=== PATIENT | female | born 1990 | race Caucasian/White ===

== ENCOUNTER 2020-01-03 19:21 | Emergency (ER) | payer MEDICAID ==
[2020-01-03] MEDS ORDERED: Sodium Chloride 0.9% 10 ML Syringe FLUSH PRN (20:19)
--- NOTE | 2020-01-03 20:26 | EDM.PDOC ---
ED HPI GENERAL MEDICAL PROBLEM - General Chief Complaint: General Stated Complaint: MEDICAL Time Seen by Provider: 01/03/20 20:20 Source of Information: Reports: Patient History Limitations: Reports: No Limitations - History of Present Illness INITIAL COMMENTS - FREE TEXT/NARRATIVE: pt has a known conversion reaction. Recently She has been having episodes where she will fall to the ground and start shaking ./ She was to be seen in [place] soon to see if she is having seizures. These started when she was 15 years old and she actually went through a time where she could not walk for about 3 monthes. She had a episode tonight where she was lying onthe ground and she felt numb and tingly all over. She did seem distressed with her breathing. Onset: Today, Sudden Duration: Hour(s): Location: Reports: Head, Chest, Generalized Associated Symptoms: Reports: Shortness of Breath, Syncope, Weakness Generalized Pain Score (Numeric/FACES): 8 - Related Data Allergies Allergy/AdvReac Type Severity Reaction Status Date / Time No Known Allergies Allergy Verified 01/03/20 19:39 Home Meds: Home Meds Amphetamine/Dextroamphetamine [Adderall XR] 30 mg PO DAILY 01/03/20 [History] Gabapentin [Neurontin] 600 mg PO TID 01/03/20 [History] QUEtiapine [SEROquel] 25 mg PO BEDTIME 01/03/20 [History] Venlafaxine [Effexor XR] 150 mg PO BEDTIME 01/03/20 [History] Past Medical History Cardiovascular History: Reports: Heart Murmur 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 Psychiatric History: Reports: Anxiety, Depression, Panic Attack, Suicide Attempt , Suicidal Ideation, Other (See Below) Other Psychiatric History: conversion disorder - Past Surgical History Female Surgical History: Reports: Section Social & Family History - Tobacco Use Smoking Status *Q: Light Tobacco Smoker Years of Tobacco use: 13 Packs/Tins Daily: 1 - Caffeine Use Caffeine Use: Reports: Coffee, Energy Drinks, Soda - Recreational Drug Use Recreational Drug Use: No ED ROS GENERAL - Review of Systems Review Of Systems: See Below Constitutional: Reports: No Symptoms HEENT: Reports: No Symptoms Respiratory: Reports: Shortness of Breath Cardiovascular: Reports: No Symptoms Endocrine: Reports: No Symptoms GI/Abdominal: Reports: No Symptoms : Reports: No Symptoms Musculoskeletal: Reports: No Symptoms Skin: Reports: No Symptoms Neurological: Reports: Other (pt is having difficulty moving her legs and standing. She is having spasm in her hands. She is tingling all over. ) ED EXAM, GENERAL - Physical Exam Exam: See Below Free Text/Narrative:: pt arrived stating that she was not able to stand up from the tolet. She was hyperventilating but the pt did not realize it. She was tingly all over. She felt sob. She has been having numerous episodes where she is actually lying on the floor. and she can not get up. Pt is thinking she may be having seizures. Exam Limited By: No Limitations General Appearance: Alert, Anxious, Moderate Distress, Other (pt is rigid and her laegs are nt working right. pupils are equal and reactive. ) Ears: Normal TMs Nose: Normal Inspection Throat/Mouth: Normal Inspection Head: Atraumatic Neck: Normal Inspection Respiratory/Chest: Decreased Breath Sounds, Other (pt is hyperventilating. ) Cardiovascular: Regular Rate, Rhythm, Tachycardia GI/Abdominal: Soft, Non-Tender (Female) Exam: Deferred Rectal (Female) Exam: Deferred Back Exam: Normal Inspection Extremities: Other (hands are in spasm her legs still are not working right. ) Neurological: Alert, Oriented, Normal Cognition, Other ( very anxiou) Psychiatric: Anxious Course - Vital Signs Last Recorded V/S: Last Vital Signs Temp 36.8 C 01/03/20 19:38 Pulse 86 01/03/20 22:00 Resp 16 01/03/20 22:00 BP 153/65 H 01/03/20 22:00 Pulse Ox 100 01/03/20 22:00 Orthostatic Blood Pressure [ 156/121 Standing] Orthostatic Blood Pressure [ 142/76 Sitting] Orthostatic Blood Pressure [ 112/88 Supine] - Orders/Labs/Meds Orders: Active Orders 24 hr Category Date Time Status Orthostatic Vital Signs [RC] ASDIRECTED Care 01/03/20 20:11 Active Chest 1V Frontal [CR] Stat Exams 01/03/20 21:28 Taken Sodium Chloride 0.9% [Normal Saline] 1,000 ml Med 01/03/20 21:30 Active IV ASDIRECTED Sodium Chloride 0.9% [Saline Flush] Med 01/03/20 20:19 Active 10 ml FLUSH ASDIRECTED PRN Saline Lock Insert [OM.PC] Routine Oth 01/03/20 20:19 Ordered Medication Orders Sodium Chloride (Normal Saline) 1,000 mls @ 999 mls/hr IV ASDIRECTED ALEX Last Admin: 01/03/20 21:50 Dose: 999 mls/hr Sodium Chloride (Saline Flush) 10 ml FLUSH ASDIRECTED PRN PRN Reason: Keep Vein Open Last Admin: 01/03/20 21:22 Dose: 10 ml Labs: Laboratory Tests 01/03/20 01/03/20 01/03/20 Range/Units 20:09 20:09 20:18 WBC 11.3 H (4.5-11.0) K/uL RBC 4.58 (3.30-5.50) M/uL Hgb 13.0 (12.0-15.0) g/dL Hct 40.2 (36.0-48.0) % MCV 88 (80-98) fL MCH 28 (27-31) pg MCHC 32 (32-36) % Plt Count 393 (150-400) K/uL Neut % (Auto) 66 (36-66) % Lymph % (Auto) 28 (24-44) % [place] % (Auto) 6 (2-6) % Eos % (Auto) 0 L (2-4) % Baso % (Auto) 0 (0-1) % Puncture Site Lt radial ABG pH 7.619 H* (7.350-7.450) ABG pCO2 12.7 L* (35.0-42.0) mmHg ABG pO2 136.0 H (75.0-100.0) mmHg ABG HCO3 13.1 L (22.0-26.0) mmol/L ABG Total CO2 13.1 L (21.0-25.0) mmol/L ABG O2 Saturation 99.7 H (95.0-98.0) % ABG Base Excess -9.3 mm/L ABG Hemoglobin 2.4 L (12.0-16.0) g/dL ABG Oxyhemoglobin % ABG Carboxyhemoglobin (0.0-1.6) % ABG Methemoglobin % Eleazar Test Passed O2 Delivery Device Room air Sodium 142 (140-148) mmol/L Potassium 3.6 (3.6-5.2) mmol/L Chloride 107 (100-108) mmol/L Carbon Dioxide 19 L (21-32) mmol/L Anion Gap 19.6 H (5.0-14.0) mmol/L BUN 9 (7-18) mg/dL Creatinine 0.8 (0.6-1.0) mg/dL Est Cr Clr Drug Dosing 92.53 mL/min Estimated GFR (MDRD) > 60 (>60) Glucose 108 H (74-106) mg/dL Calcium 9.1 (8.5-10.1) mg/dL Total Bilirubin 0.2 (0.2-1.0) mg/dL AST 20 (15-37) U/L ALT 39 (12-78) U/L Alkaline Phosphatase 71 (46-116) U/L Total Protein 7.4 (6.4-8.2) g/dL Albumin 4.0 (3.4-5.0) g/dL Globulin 3.4 (2.3-3.5) g/dL Albumin/Globulin Ratio 1.2 (1.2-2.2) Urine Color (YELLOW) Urine Appearance (CLEAR) Urine pH (5.0-8.0) Ur Specific [place] (1.008-1.030) Urine Protein (NEGATIVE) mg/dL Urine Glucose (UA) (NEGATIVE) mg/dL Urine Ketones (NEGATIVE) mg/dL Urine Occult Blood (NEGATIVE) Urine Nitrite (NEGATIVE) Urine Bilirubin (NEGATIVE) Urine Urobilinogen (0.2-1.0) EU/dL Ur Leukocyte Esterase (NEGATIVE) Urine RBC (0-5) Urine WBC (0-5) Ur Epithelial Cells Amorphous Sediment Urine Bacteria Urine Mucus 01/03/20 Range/Units 21:19 WBC (4.5-11.0) K/uL RBC (3.30-5.50) M/uL Hgb (12.0-15.0) g/dL Hct (36.0-48.0) % MCV (80-98) fL MCH (27-31) pg MCHC (32-36) % Plt Count (150-400) K/uL Neut % (Auto) (36-66) % Lymph % (Auto) (24-44) % [place] % (Auto) (2-6) % Eos % (Auto) (2-4) % Baso % (Auto) (0-1) % Puncture Site ABG pH (7.350-7.450) ABG pCO2 (35.0-42.0) mmHg ABG pO2 (75.0-100.0) mmHg ABG HCO3 (22.0-26.0) mmol/L ABG Total CO2 (21.0-25.0) mmol/L ABG O2 Saturation (95.0-98.0) % ABG Base Excess mm/L ABG Hemoglobin (12.0-16.0) g/dL ABG Oxyhemoglobin % ABG Carboxyhemoglobin (0.0-1.6) % ABG Methemoglobin % Eleazar Test O2 Delivery Device Sodium (140-148) mmol/L Potassium (3.6-5.2) mmol/L Chloride (100-108) mmol/L Carbon Dioxide (21-32) mmol/L Anion Gap (5.0-14.0) mmol/L BUN (7-18) mg/dL Creatinine (0.6-1.0) mg/dL Est Cr Clr Drug Dosing mL/min Estimated GFR (MDRD) (>60) Glucose (74-106) mg/dL Calcium (8.5-10.1) mg/dL Total Bilirubin (0.2-1.0) mg/dL AST (15-37) U/L ALT (12-78) U/L Alkaline Phosphatase (46-116) U/L Total Protein (6.4-8.2) g/dL Albumin (3.4-5.0) g/dL Globulin (2.3-3.5) g/dL Albumin/Globulin Ratio (1.2-2.2) Urine Color Yellow (YELLOW) Urine Appearance Cloudy A (CLEAR) Urine pH 8.5 H (5.0-8.0) Ur Specific [place] 1.025 (1.008-1.030) Urine Protein 100 H (NEGATIVE) mg/dL Urine Glucose (UA) Negative (NEGATIVE) mg/dL Urine Ketones Trace H (NEGATIVE) mg/dL Urine Occult Blood Large H (NEGATIVE) Urine Nitrite Negative (NEGATIVE) Urine Bilirubin Negative (NEGATIVE) Urine Urobilinogen 0.2 (0.2-1.0) EU/dL Ur Leukocyte Esterase Negative (NEGATIVE) Urine RBC 10-20 H (0-5) Urine WBC 0-5 (0-5) Ur Epithelial Cells Many Amorphous Sediment Not seen Urine Bacteria Moderate Urine Mucus Many Meds: Medications Generic Name Dose Route Start Last Admin Trade Name Freq PRN Reason Stop Dose Admin Sodium Chloride 1,000 mls @ 999 mls/hr 01/03/20 21:30 01/03/20 21:50 Normal Saline IV 999 mls/hr ASDIRECTED ALEX Administration Sodium Chloride 10 ml 01/03/20 20:19 01/03/20 21:22 Saline Flush FLUSH 10 ml ASDIRECTED PRN Administration Keep Vein Open Discontinued Medications Generic Name Dose Route Start Last Admin Trade Name Freq PRN Reason Stop Dose Admin Acetaminophen 650 mg 01/03/20 22:27 Tylenol PO 01/03/20 22:28 NOW ONE Lorazepam 0.5 mg 01/03/20 20:27 01/03/20 21:21 Ativan IVPUSH 01/03/20 20:28 0.5 mg ONETIME ONE Administration Lorazepam 0.5 mg 01/03/20 21:54 01/03/20 22:13 Ativan IVPUSH 01/03/20 21:55 0.5 mg ONETIME ONE Administration - Re-Assessments/Exams Free Text/Narrative Re-Assessment/Exam: 01/03/20 22:56 cat scan of the head is neg. She had blood gases which show a ph greater than 7.6. Her co2 on the blood gases was 12.6. She clearly had been hyperventillating a t home for a period of time. She was breathing rapidly tonight on arrival. Her other lab work looks normal. Pt states she has a conversion syndrome. 01/03/20 22:58 pt was given a total of ativan 1.5 mg. She is looking better her breathing is better. Departure - Departure Time of Disposition: 23:05 Disposition: Home, Self-Care 01 Condition: Fair Clinical Impression: Respiratory alkalosis, Hyperventilation, Anxiety - Discharge Information Referrals: Arline Caceres MD [Primary Care Provider] - Forms: ED Department Discharge Care Plan Goals: appt with Dr Caceres tomorrow. The pt needs some medication readjustment and psych consult. 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 Pt needs to gain some insight as to what to do when this happens. pt was given vistaril 25 mg to use . when she is feeling upset or getting tense. pt needs to use her medication regularly and not skep doses. . vistaril 25 q8h prn for anxiety or feeling upset. Sepsis Event Note (ED) - Evaluation Sepsis Screening Result: No Definite Risk - Focused Exam Vital Signs: Vital Signs Temp Pulse Resp BP Pulse Ox 01/03/20 22:00 86 16 153/65 H 100 01/03/20 21:32 103 H 22 H 142/82 H 100 01/03/20 20:48 100 22 H 132/66 99 01/03/20 19:38 36.8 C 111 H 16 146/81 H 99 01/03/20 19:33 36.8 C 111 H 16 146/81 H 99 - My Orders Last 24 Hours: My Active Orders 01/03/20 20:11 Orthostatic Vital Signs [RC] ASDIRECTED 01/03/20 20:19 Sodium Chloride 0.9% [Saline Flush] 10 ml FLUSH ASDIRECTED PRN Saline Lock Insert [OM.PC] Routine 01/03/20 21:28 Chest 1V Frontal [CR] Stat 01/03/20 21:30 Sodium Chloride 0.9% [Normal Saline] 1,000 ml IV ASDIRECTED - Assessment/Plan Last 24 Hours: My Active Orders 01/03/20 20:11 Orthostatic Vital Signs [RC] ASDIRECTED 01/03/20 20:19 Sodium Chloride 0.9% [Saline Flush] 10 ml FLUSH ASDIRECTED PRN Saline Lock Insert [OM.PC] Routine 01/03/20 21:28 Chest 1V Frontal [CR] Stat 01/03/20 21:30 Sodium Chloride 0.9% [Normal Saline] 1,000 ml IV ASDIRECTED
[2020-01-03] MEDS ORDERED: LORazepam 2 MG/ML SDV IVPUSH ONE ×2 (20:27→21:54)
--- NOTE | 2020-01-03 21:02 | CRLCT ---
INDICATION: Generalized weakness and numbness TECHNIQUE: CT head without contrast. COMPARISON: None FINDINGS: CSF spaces: Within normal limits for age. Brain parenchyma: The manriquez-white differentiation is normal. No sign of mass, hemorrhage, or midline shift. Skull base and calvarium: The visualized paranasal sinuses and mastoid air cells demonstrate no acute or significant findings. The visualized orbits are grossly unremarkable. No skull fractures. IMPRESSION: Unremarkable noncontrast head CT. Dictated by Lior Aguilar MD @ 01/03/2020 9:00:41 PM Please note that all CT scans at this facility use dose modulation, iterative reconstruction, and/or weight-based dosing when appropriate to reduce radiation dose to as low as reasonably achievable. Dictated by: Lior Aguilar MD @ 01/03/2020 21:00:46 (Electronically Signed)
[2020-01-03] MEDS ORDERED: Sodium Chloride 0.9% 1,000 ML IV SCH (21:30)
[2020-01-03] MEDS ORDERED: Acetaminophen 325 MG Tab PO ONE (22:27)
[2020-01-03] MEDS ORDERED: hydrOXYzine HCl 25 MG Tab ONE (23:32)
--- NOTE | 2020-01-04 08:56 | CR ---
CHEST: Portable 01/03/2020 at 9:40 PM CLINICAL HISTORY:SOB COMPARISON:None FINDINGS: Patient has a moderate to dextro scoliosis of the thoracic spine. The heart size, pulmonary vascularity and hilar structures are normal. No infiltrate effusion or pneumothorax is seen. IMPRESSION: No acute cardiopulmonary process.
[2020-01-04] MEDS ORDERED: hydrOXYzine HCl 25 MG Tab PO SCH (21:00)
== END 2020-01-04 00:15 | disposition home or self-care (01) ==
LOC: JP.ED 19:21
DX: F41.9 Anxiety disorder, unspecified (principal); R06.4 Hyperventilation; E87.3 Alkalosis; J45.909 Unspecified asthma, uncomplicated; F32.9 Major depressive disorder, single episode, unspecified; F17.210 Nicotine dependence, cigarettes, uncomplicated; Z79.899 Other long term (current) drug therapy
CPT/HCPCS: 36415; 36600; 70450; 71045; 80053; 81001; 82803; 85025; 96361; 96374; 96376; 99285; A9270; J2060; J7030

== ENCOUNTER 2020-05-31 10:09 | Emergency (ER) | payer MEDICAID ==
[2020-05-31] MEDS ORDERED: LORazepam 2 MG/ML SDV IVPUSH ONE (11:32)
[2020-05-31] MEDS ORDERED: Albuterol 8 GM Inhaler INH ONE (11:35)
[2020-05-31] MEDS ORDERED: Acetaminophen 325 MG Tab PO ONE (11:38)
--- NOTE | 2020-05-31 11:38 | EDM.PDOC ---
ED HPI GENERAL MEDICAL PROBLEM - General Chief Complaint: Respiratory Problem Stated Complaint: TROUBLE BREATHING Time Seen by Provider: 05/31/20 11:35 Source of Information: Reports: Patient History Limitations: Reports: No Limitations - History of Present Illness INITIAL COMMENTS - FREE TEXT/NARRATIVE: pt arrived very anxious and feeling sob. She left work last nite with sob and her sats according to what they obtaained at the [facility] was in the 85 range. She does have a history of asthma. Onset: Other ( started last nite. ) Duration: Hour(s): Associated Symptoms: Reports: Cough, Shortness of Breath, Other (pt is very anxious. ) Back Pain Score (Numeric/FACES): 9 - Related Data Allergies Allergy/AdvReac Type Severity Reaction Status Date / Time No Known Allergies Allergy Verified 05/31/20 11:00 Home Meds: Home Meds Amphetamine/Dextroamphetamine [Adderall XR] 30 mg PO DAILY 01/03/20 [History] Gabapentin [Neurontin] 600 mg PO TID 01/03/20 [History] QUEtiapine [SEROquel] 25 mg PO BEDTIME 01/03/20 [History] Venlafaxine [Effexor XR] 150 mg PO BEDTIME 01/03/20 [History] Albuterol Sulfate [Albuterol Sulfate Hfa] 2 puff IH Q4H 05/31/20 [History] Propranolol [Inderal] 80 mg PO BEDTIME 05/31/20 [History] SUMAtriptan [Imitrex] 25 mg PO ASDIRECTED 05/31/20 [History] Past Medical History Cardiovascular History: Reports: Heart Murmur 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 Psychiatric History: Reports: Anxiety, Depression, Panic Attack, Suicide Attempt, Suicidal Ideation, Other (See Below) Other Psychiatric History: conversion disorder - Infectious Disease History Infectious Disease History: Reports: Chicken Pox - Past Surgical History Female Surgical History: Reports: Section Social & Family History - Tobacco Use Tobacco Use Status *Q: Current Every Day Tobacco User Years of Tobacco use: 13 Packs/Tins Daily: 1 Used Tobacco, but Quit: No Second Hand Smoke Exposure: Yes - Caffeine Use Caffeine Use: Reports: Coffee, Energy Drinks, Soda, Tea - Recreational Drug Use Recreational Drug Use: No ED ROS GENERAL - Review of Systems Review Of Systems: See Below Constitutional: Reports: Chills, Weakness, Decreased Appetite HEENT: Reports: No Symptoms Respiratory: Reports: Shortness of Breath, Other (pt is hyperventilating. ) Cardiovascular: Reports: No Symptoms Endocrine: Reports: No Symptoms GI/Abdominal: Reports: Nausea, Other ( ) : Reports: No Symptoms Musculoskeletal: Reports: No Symptoms Skin: Reports: No Symptoms ED EXAM, GENERAL - Physical Exam Exam: See Below Free Text/Narrative:: pt arrived hyperventilating and feeling sob. She gives a history of low o2 sats last nite before she left the [facility]. Exam Limited By: No Limitations General Appearance: Alert, Anxious, Moderate Distress Ears: Normal TMs Nose: Normal Inspection Throat/Mouth: Normal Inspection Head: Atraumatic Neck: Normal Inspection Respiratory/Chest: Other (pt was breathing quite rapidly ) Cardiovascular: Regular Rate, Rhythm GI/Abdominal: Soft, Non-Tender (Female) Exam: Deferred Rectal (Female) Exam: Deferred Back Exam: Normal Inspection Extremities: Normal Inspection Neurological: Alert, Oriented, Normal Cognition Psychiatric: Anxious Course - Vital Signs Last Recorded V/S: Last Vital Signs Temp 35.8 C L 05/31/20 13:05 Pulse 85 05/31/20 13:05 Resp 12 05/31/20 13:05 BP 133/79 05/31/20 13:05 Pulse Ox 99 05/31/20 13:05 - Orders/Labs/Meds Orders: Active Orders 24 hr Category Date Time Status RT Post Treatment Assessment [RC] Click to Edit Care 05/31/20 11:35 Active Chest 1V Frontal [CR] Stat Exams 05/31/20 11:34 Taken Sodium Chloride 0.9% [Normal Saline] 1,000 ml Med 05/31/20 11:45 Active IV ASDIRECTED Medication Orders Sodium Chloride (Normal Saline) 1,000 mls @ 999 mls/hr IV ASDIRECTED ALEX Last Admin: 05/31/20 11:57 Dose: 999 mls/hr Documented by: RADHA Labs: Laboratory Tests 05/31/20 05/31/20 05/31/20 Range/Units 10:56 11:09 11:09 WBC 6.7 (4.5-11.0) K/uL RBC 4.22 (3.30-5.50) M/uL Hgb 12.1 (12.0-15.0) g/dL Hct 37.1 (36.0-48.0) % MCV 88 (80-98) fL MCH 29 (27-31) pg MCHC 33 (32-36) % Plt Count 342 (150-400) K/uL Neut % (Auto) 50 (36-66) % Lymph % (Auto) 43 (24-44) % [place] % (Auto) 7 H (2-6) % Eos % (Auto) 0 L (2-4) % Baso % (Auto) 0 (0-1) % D-Dimer, Quantitative (0.0-500.0) ng/mL Sodium 142 (140-148) mmol/L Potassium 3.4 L (3.6-5.2) mmol/L Chloride 107 (100-108) mmol/L Carbon Dioxide 22 (21-32) mmol/L Anion Gap 16.4 H (5.0-14.0) mmol/L BUN 10 (7-18) mg/dL Creatinine 0.8 (0.6-1.0) mg/dL Est Cr Clr Drug Dosing 96.26 mL/min Estimated GFR (MDRD) > 60 (>60) Glucose 91 (74-106) mg/dL Calcium 8.7 (8.5-10.1) mg/dL Total Bilirubin 0.2 (0.2-1.0) mg/dL AST 20 (15-37) U/L ALT 24 (12-78) U/L Alkaline Phosphatase 69 (46-116) U/L C-Reactive Protein (0.0-0.3) mg/dL Total Protein 6.8 (6.4-8.2) g/dL Albumin 3.6 (3.4-5.0) g/dL Globulin 3.2 (2.3-3.5) g/dL Albumin/Globulin Ratio 1.1 L (1.2-2.2) Urine Color (YELLOW) Urine Appearance (CLEAR) Urine pH (5.0-8.0) Ur Specific [place] (1.008-1.030) Urine Protein (NEGATIVE) mg/dL Urine Glucose (UA) (NEGATIVE) mg/dL Urine Ketones (NEGATIVE) mg/dL Urine Occult Blood (NEGATIVE) Urine Nitrite (NEGATIVE) Urine Bilirubin (NEGATIVE) Urine Urobilinogen (0.2-1.0) EU/dL Ur Leukocyte Esterase (NEGATIVE) Urine RBC (0-5) Urine WBC (0-5) Ur Epithelial Cells Amorphous Sediment Urine Bacteria Urine Mucus SARS CoV-2 RNA Rapid DANIAL Positive H 05/31/20 05/31/20 05/31/20 Range/Units 11:26 11:26 12:11 WBC (4.5-11.0) K/uL RBC (3.30-5.50) M/uL Hgb (12.0-15.0) g/dL Hct (36.0-48.0) % MCV (80-98) fL MCH (27-31) pg MCHC (32-36) % Plt Count (150-400) K/uL Neut % (Auto) (36-66) % Lymph % (Auto) (24-44) % [place] % (Auto) (2-6) % Eos % (Auto) (2-4) % Baso % (Auto) (0-1) % D-Dimer, Quantitative 251.67 (0.0-500.0) ng/mL Sodium (140-148) mmol/L Potassium (3.6-5.2) mmol/L Chloride (100-108) mmol/L Carbon Dioxide (21-32) mmol/L Anion Gap (5.0-14.0) mmol/L BUN (7-18) mg/dL Creatinine (0.6-1.0) mg/dL Est Cr Clr Drug Dosing mL/min Estimated GFR (MDRD) (>60) Glucose (74-106) mg/dL Calcium (8.5-10.1) mg/dL Total Bilirubin (0.2-1.0) mg/dL AST (15-37) U/L ALT (12-78) U/L Alkaline Phosphatase (46-116) U/L C-Reactive Protein < 0.05 (0.0-0.3) mg/dL Total Protein (6.4-8.2) g/dL Albumin (3.4-5.0) g/dL Globulin (2.3-3.5) g/dL Albumin/Globulin Ratio (1.2-2.2) Urine Color Yellow (YELLOW) Urine Appearance Slightly cloudy A (CLEAR) Urine pH >= 9.0 H (5.0-8.0) Ur Specific [place] 1.015 (1.008-1.030) Urine Protein 30 H (NEGATIVE) mg/dL Urine Glucose (UA) Negative (NEGATIVE) mg/dL Urine Ketones Negative (NEGATIVE) mg/dL Urine Occult Blood Negative (NEGATIVE) Urine Nitrite Negative (NEGATIVE) Urine Bilirubin Negative (NEGATIVE) Urine Urobilinogen 0.2 (0.2-1.0) EU/dL Ur Leukocyte Esterase Negative (NEGATIVE) Urine RBC 0-5 (0-5) Urine WBC 0-5 (0-5) Ur Epithelial Cells Moderate Amorphous Sediment Not seen Urine Bacteria Rare Urine Mucus Many SARS CoV-2 RNA Rapid DANIAL Meds: Medications Generic Name Dose Route Start Last Admin Trade Name Freq PRN Reason Stop Dose Admin Sodium Chloride 1,000 mls @ 999 mls/hr 05/31/20 11:45 05/31/20 11:57 Normal Saline IV 999 mls/hr ASDIRECTED ALEX Administration Discontinued Medications Generic Name Dose Route Start Last Admin Trade Name Freq PRN Reason Stop Dose Admin Acetaminophen 650 mg 05/31/20 11:38 05/31/20 11:52 Tylenol PO 05/31/20 11:39 650 mg NOW ONE Administration Albuterol 2 gm 05/31/20 11:35 05/31/20 11:53 Ventolin Hfa INH 05/31/20 11:36 2 gm ONETIME ONE Administration Lorazepam 0.5 mg 05/31/20 11:32 05/31/20 12:00 Ativan IVPUSH 05/31/20 11:33 0.5 mg ONETIME ONE Administration - Re-Assessments/Exams Free Text/Narrative Re-Assessment/Exam: 05/31/20 13:19 pt arrived very anxious and she was hyperventilating. She thinks she has covid. Pt was covid positive but the rest of her labs look good. 05/31/20 13:20 Departure - Departure Time of Disposition: 13:20 Disposition: Home, Self-Care 01 Condition: Fair Clinical Impression: COVID-19 - Discharge Information Instructions: COVID-19 Referrals: PCP,None [Primary Care Provider] - Forms: ED Department Discharge Care Plan Goals: ,hyperventilation tylenol and motrin for fever. Push fluids. vitc, zinc replacement, and pepcid 20 mg daily. contact your work place so they can give you directions, quantine as directed Sepsis Event Note (ED) - Evaluation Sepsis Screening Result: No Definite Risk - Focused Exam Vital Signs: Vital Signs Temp Pulse Resp BP Pulse Ox 05/31/20 13:05 35.8 C L 85 12 133/79 99 05/31/20 11:11 37.1 C 86 16 127/80 98 05/31/20 10:30 37.1 C 86 20 127/80 98 - My Orders Last 24 Hours: My Active Orders 05/31/20 11:34 Chest 1V Frontal [CR] Stat 05/31/20 11:35 RT Post Treatment Assessment [RC] Click to Edit 05/31/20 11:45 Sodium Chloride 0.9% [Normal Saline] 1,000 ml IV ASDIRECTED - Assessment/Plan Last 24 Hours: My Active Orders 05/31/20 11:34 Chest 1V Frontal [CR] Stat 05/31/20 11:35 RT Post Treatment Assessment [RC] Click to Edit 05/31/20 11:45 Sodium Chloride 0.9% [Normal Saline] 1,000 ml IV ASDIRECTED
[2020-05-31] MEDS ORDERED: Sodium Chloride 0.9% 1,000 ML IV SCH (11:45)
--- NOTE | 2020-06-03 09:03 | CR ---
CHEST: Portable 05/31/2020 11:53 AM CLINICAL HISTORY:Covid positive COMPARISON:01/03/2020 FINDINGS: Heart and pulmonary vascularity are normal. There is some minimal patchy density in both lower lung mahmood not seen on prior study. There is a moderate-sized dextroscoliosis. Impression: Patchy bibasal densities suggest the pneumonic infiltrate.
== END 2020-05-31 14:06 | disposition home or self-care (01) ==
LOC: JP.ED 10:09
DX: U07.1 COVID-19 (principal); J45.909 Unspecified asthma, uncomplicated; F41.9 Anxiety disorder, unspecified; F32.9 Major depressive disorder, single episode, unspecified; F17.210 Nicotine dependence, cigarettes, uncomplicated; Z79.899 Other long term (current) drug therapy
CPT/HCPCS: 36415; 71045; 80053; 81001; 85025; 85379; 86140; 87635; 94640; 96374; 99285; A9270; J2060; J7030; 99284; U0002

== ENCOUNTER 2023-04-30 12:31 | Emergency (ER) | payer MEDICAID ==
[2023-04-30] MEDS ORDERED: LORazepam 0.5 MG Tab PO ONE ×2 (13:19→13:50)
[2023-04-30 14:46] LABS: BASE EXCESS ARTERIAL -1.9 mm/L; BICARBONATE,ARTERIAL 15.3 mmol/L (22.0-26.0); CARBOXYHEMOGLOBIN 2.7 % (0.0-1.6); METHEMOGLOBIN 0.9 %; OXYHEMOGLOBIN 96.5 %; TOTAL HEMOGLOBIN 13.2 g/dL (12.0-16.0)
[2023-04-30] MEDS ORDERED: LORazepam 1 MG Tab PO ONE (14:48)
[2023-04-30 14:59] LABS: O2 SATURATION ARTERIAL > 99.3 % (95.0-98.0); PCO2 ARTERIAL 11.4 mmHg (35.0-42.0)
== END 2023-04-30 15:38 | disposition home or self-care (01) ==
LOC: JP.ED 12:31
DX: R06.4 Hyperventilation (principal); U07.1 COVID-19; F17.210 Nicotine dependence, cigarettes, uncomplicated; J45.909 Unspecified asthma, uncomplicated; Z79.899 Other long term (current) drug therapy
CPT/HCPCS: 36600; 70450; 82803; 99285; A9270